=== PATIENT | male | born 1995 | race Caucasian/White ===

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

== ENCOUNTER → 2017-01-26 | Outpatient (CLI) | payer OTHER | LOC: COL.RAD 13:02 | DX: M25.551 Pain in right hip (principal) | CPT/HCPCS: J3301; Q9967 ==